=== PATIENT | male | born 1965 | race Caucasian/White ===

== ENCOUNTER 2017-02-16 07:21 | Day surgery (SDC) | payer OTHER ==
[~2017-02-16 07:21] MED LIST: Lactated Ringers 1,000 ML IV SCH; Lidocaine 1%/Sod Bicarbonate in NS 8.4% 1 ML Syringe PRN; Propofol 200 MG/20 ML SDV ONE; Sodium Chloride 0.9% 10 ML Syringe FLUSH PRN
--- NOTE | 2017-02-16 07:44 | PCM.PREANE ---
Preanesthetic Assessment - Anesthesia/Transfusion/Family Hx Anesthesia History: Prior Anesthesia Without Reaction Other Type of Anesthesia Reaction Comment: none Family History of Anesthesia Reaction: No Family History of Anesthesia Reaction, Other: none Transfusion History: No Prior Transfusion(s) Other Type of Transfusion Reaction: none - Review of Systems General: No Symptoms Pulmonary: No Symptoms Cardiovascular: No Symptoms Gastrointestinal: No symptoms Neurological: No Symptoms Other: Reports: None - Physical Assessment Pulse: 87 O2 Sat by Pulse Oximetry: 97 Respiratory Rate: 16 Blood Pressure: 145/96 Temperature: 98.2 C ASA Class: 2 Mental Status: Alert & Oriented x3 Airway Class: Mallampati = 2 Dentition: Reports: Normal Dentition ROM/Head Extension: Full Lungs: Clear to auscultation, Normal respiratory effort Cardiovascular: Regular Rate, Regular Rhythm - Allergies Allergies/Adverse Reactions: Allergies Allergy/AdvReac Type Severity Reaction Status Date / Time No Known Allergies Allergy Verified 02/15/17 15:42 - Anesthesia Plan Pre-Op Medication Ordered: None - Acknowledgements Anesthesia Type Planned: MAC Pt an Appropriate Candidate for the Planned Anesthesia: Yes Alternatives and Risks of Anesthesia Discussed w Pt/Guardian: Yes Pt/Guardian Understands and Agrees with Anesthesia Plan: Yes PreAnesthesia Questionnaire HEENT History: Reports: Allergic Rhinitis, Impaired Vision, Other (See Below) Other HEENT History: wears glasses Cardiovascular History: Reports: High Cholesterol, Hypertension, Other (See Below) (pt states has had a hx of irregular heartbeat, echo in 2010, 2012 normal , stress test at that time also negative) Other Cardiovascular History: irregular heart beat Respiratory History: Reports: None Gastrointestinal History: Reports: Hemorrhoids Genitourinary History: Reports: Other (See Below) Other Genitourinary History: hematuria DIGESTER 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: Reports: None Musculoskeletal History: Reports: Back Pain, Chronic Neurological History: Reports: None Psychiatric History: Reports: None Endocrine/Metabolic History: Reports: None Hematologic History: Reports: Anemia, Other (See Below) Other Hematologic History: metabolic syndrome X Immunologic History: Reports: None Oncologic (Cancer) History: Reports: None Dermatologic History: Reports: Other (See Below) Other Dermatologic History: skin neoplasm - Past Surgical History Head Surgeries/Procedures: Reports: None HEENT Surgical History: Reports: None Cardiovascular Surgical History: Reports: None Respiratory Surgical History: Reports: None GI Surgical History: Reports: Colonoscopy (no anesthetic complications with any procedures), Other (See Below) Other GI Surgeries/Procedures: pyloric stenosis surgery as infant Female Surgical History: Reports: None Male Surgical History: Reports: None Endocrine Surgical History: Reports: None Neurological Surgical History: Reports: None Musculoskeletal Surgical History: Reports: Other (See Below) (elbow x3) Other Musculoskeletal Surgeries/Procedures:: elbow surgery, foot surgery Oncologic Surgical History: Reports: None Dermatological Surgical History: Reports: None - SUBSTANCE USE Smoking Status *Q: Never Smoker Days Per Week of Alcohol Use: 4 Number of Drinks Per Day: 3 Total Drinks Per Week: 12 Recreational Drug Use History: No - HOME MEDS Home Medications: Home Meds Aspirin 81 mg PO DAILY 02/15/17 [History] Lisinopril 20 mg PO DAILY 02/15/17 [History] atorvaSTATin Calcium [Atorvastatin Calcium] 40 mg PO DAILY 02/15/17 [History] - CURRENT (IN HOUSE) MEDS Current Meds: Current Medications Lactated Ringer's (Ringers, Lactated) 1,000 mls @ 125 mls/hr IV ASDIRECTED EH Stop: 02/16/17 23:00 Lidocaine/Sodium Bicarbonate (Buffered Lidocaine 1% In Ns 8.4%) 0.25 ml .XX ONETIME PRN PRN Reason: Prior to IV Start Stop: 02/16/17 18:00 Sodium Chloride (Saline Flush) 10 ml FLUSH ASDIRECTED PRN PRN Reason: Keep Vein Open Stop: 02/16/17 18:00 Discontinued Medications Propofol (Diprivan 20 Ml) Confirm Administered Dose 200 mg .ROUTE .STK-MED ONE Stop: 02/16/17 07:00
[2017-02-16] MEDS ORDERED: Propofol 200 MG/20 ML SDV ONE (08:48)
--- NOTE | 2017-02-16 08:59 | PCM.OPNOTE ---
[id number] Findings: anal tag Pre Op Diagnosis: screening Post-Op Diagnosis: 1. anal tag Anesthesia Technique: MAC, Moderate sedation Primary Surgeon: Ray Sheikh Pathology: none EBL in mLs: 0 Complications: None Condition: Good Free Text/Narrative:: After adequate IV sedation and analgesia was obtained the patient was placed on his left side. Perianal inspection and digital rectal examination were remarkable for a anal tag. Prostate was grossly normal A lubricated colonoscope was inserted into the rectum then advanced under direct vision to the cecum without difficulty. The bowel preparation was excellent. The cecum, right colon , transverse, and descending colons were endoscopically normal with no inflammatory changes or mass lesions seen. The sigmoid and rectum were unremarkable as well. Photographs were taken for the patient and for the record. Air was removed, as I finished the procedure, which he tolerated well. There were no procedure complications.
--- NOTE | 2017-02-16 09:00 | PCM48HPAN ---
Post Anesthesia Note - EVALUATION WITHIN 48HRS OF ANESTHETIC Vital Signs in Normal Range: Yes Patient Participated in Evaluation: Yes Respiratory Function Stable: Yes Airway Patent: Yes Cardiovascular Function Stable: Yes Hydration Status Stable: Yes Pain Control Satisfactory: Yes Nausea and Vomiting Control Satisfactory: Yes Mental Status Recovered: Yes
[2017-02-16 09:19] VITALS: BP 94/70
== END 2017-02-16 09:29 | disposition home or self-care (01) ==
LOC: JD.SDS 07:21
PROVIDERS: ATTEND Surgery
DX: Z12.11 Encounter for screening for malignant neoplasm of colon (principal); K64.4 Residual hemorrhoidal skin tags; I10 Essential (primary) hypertension; Z79.82 Long term (current) use of aspirin; Z79.899 Other long term (current) drug therapy; Z98.890 Other specified postprocedural states; Z87.09 Personal history of other diseases of the respiratory system; Z78.9 Other specified health status; Z72.0 Tobacco use
CPT/HCPCS: 45378; J7120; J2704

== ENCOUNTER 2019-01-15 15:21 | Emergency (ER) | payer OTHER ==
[2019-01-15 15:33] VITALS: BP 118/69
[2019-01-15] MEDS ORDERED: Cephalexin 500 MG Cap PO ONE (16:30)
[2019-01-15] MEDS ORDERED: cefTRIAXone 1 GM, Lidocaine 1% 2.1 ML IM ONE ×2 (16:30)
--- NOTE | 2019-01-15 16:30 | EDM.PDOC ---
ED HPI GENERAL MEDICAL PROBLEM - General Chief Complaint: Skin Complaint Stated Complaint: OPEN WOUND Time Seen by Provider: 01/15/19 15:55 Source of Information: Reports: Patient History Limitations: Reports: No Limitations - History of Present Illness INITIAL COMMENTS - FREE TEXT/NARRATIVE: Patient is a 53-year-old male presents to the ED complaining of red, swollen, hot left elbow with increased pain with palpation that started approximately Tuesday morning. States this has not changed since onset. No redness streaking up his arm, fever, chills, nausea/vomiting, chest pain, or shortness of breath. He has no history of blood clots. Patient did have 2 IVs to this arm. One was present for 4 days. He has no history of MRSA. Second complaint is dehiscence of surgical incision to the abdomen. 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 This occurred 10 days ago. He was discharged this past and has been tolerating normal diet and having normal bowel movements. Pain has been tolerable unchanged. States today with having the sonia removed at his PCPs office they removed 3 sonia and the wound dehisced. There was some bleeding present. This has subsided. Patient was referred to the ED for further evaluation. Left Arm Pain Score (Numeric/FACES): 6 - Related Data Allergies Allergy/AdvReac Type Severity Reaction Status Date / Time No Known Allergies Allergy Verified 01/15/19 15:33 Home Meds: Home Meds Aspirin 81 mg PO DAILY 02/15/17 [History] Lisinopril 20 mg PO DAILY 02/15/17 [History] atorvaSTATin Calcium [Atorvastatin Calcium] 40 mg PO DAILY 02/15/17 [History] Doxycycline [Vibramycin] 100 mg PO BID #20 cap 01/15/19 [Rx] Past Medical History HEENT History: Reports: Allergic Rhinitis, Impaired Vision, Other (See Below) Other HEENT History: wears glasses Cardiovascular History: Reports: High Cholesterol, Hypertension, Other (See Below) Other Cardiovascular History: irregular heart beat Respiratory History: Reports: None Gastrointestinal History: Reports: Hemorrhoids Genitourinary History: Reports: Other (See Below) Other Genitourinary History: hematuria WEIGHER AND 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 History: Reports: None Musculoskeletal History: Reports: Back Pain, Chronic Neurological History: Reports: None Psychiatric History: Reports: None Endocrine/Metabolic History: Reports: None Hematologic History: Reports: Anemia, Other (See Below) Other Hematologic History: metabolic syndrome X Immunologic History: Reports: None Oncologic (Cancer) History: Reports: None Dermatologic History: Reports: Other (See Below) Other Dermatologic History: skin neoplasm - Past Surgical History Head Surgeries/Procedures: Reports: None HEENT Surgical History: Reports: None Cardiovascular Surgical History: Reports: None Respiratory Surgical History: Reports: None GI Surgical History: Reports: Colonoscopy, Other (See Below) Other GI Surgeries/Procedures: pyloric stenosis surgery as infant Male Surgical History: Reports: None Endocrine Surgical History: Reports: None Neurological Surgical History: Reports: None Musculoskeletal Surgical History: Reports: Other (See Below) Other Musculoskeletal Surgeries/Procedures:: elbow surgery, foot surgery Oncologic Surgical History: Reports: None Dermatological Surgical History: Reports: None Social & Family History - Tobacco Use Smoking Status *Q: Never Smoker - Caffeine Use Caffeine Use: - Recreational Drug Use Recreational Drug Use: No ED ROS GENERAL - Review of Systems Review Of Systems: ROS reveals no pertinent complaints other than HPI. ED EXAM, SKIN/RASH Exam: See Below Exam Limited By: No Limitations General Appearance: Alert, WD/WN, No Apparent Distress Ears: Hearing Grossly Normal Nose: Normal Inspection Throat/Mouth: Normal Voice, No Airway Compromise Head: Atraumatic, Normocephalic Neck: Normal Inspection, Supple Respiratory/Chest: No Respiratory Distress, Lungs Clear, Normal Breath Sounds, No Accessory Muscle Use, Chest Non-Tender Cardiovascular: Normal Peripheral Pulses, Regular Rate, Rhythm, No Murmur Peripheral Pulses: 2+: Radial (L), Radial (R) GI/Abdominal: Normal Bowel Sounds, No Organomegaly, No Distention, Tender, Other (Large midline vertical surgical incision from bowel resection with sonia present. The superior border of the incision site has dehisced measuring approximately 1.5 cm long by 0.25 cm wide. No active bleeding present. No findings concerning for infection including: Swelling, purulent drainage, or increased redness. Pain present with palpation. With further examination deeper it appears the fascia is intact. No colon protruding through incision.) Back Exam: Normal Inspection. No: CVA Tenderness (L), CVA Tenderness (R) Extremities: Other (On examination of the left elbow there is some swelling, faint redness, and pinpoint tenderness on the olecranon. Patient is able to move his arm at the elbow with no difficulties. There is decreased range of motion secondary to pain. Limited change.) Neurological: Alert, Oriented, CN II-XII Intact, Normal Cognition, No Motor/ Sensory Deficits Psychiatric: Normal Affect, Normal Mood Skin: Warm, Dry Course - Vital Signs Last Recorded V/S: Last Vital Signs Temp 97.8 F 01/15/19 15:29 Pulse 79 01/15/19 15:29 Resp 16 01/15/19 15:29 BP 118/69 01/15/19 15:29 Pulse Ox 99 01/15/19 15:29 - Orders/Labs/Meds Meds: Medications Discontinued Medications Generic Name Dose Route Start Last Admin Trade Name Freq PRN Reason Stop Dose Admin Cephalexin 500 mg 01/15/19 16:30 Keflex PO 01/15/19 16:31 ONETIME ONE Ceftriaxone Sodium 1 gm/ 0 gm 01/15/19 16:30 Lidocaine HCl 2.1 ml IM 01/15/19 16:31 ONETIME ONE Doxycycline Hyclate 200 mg 01/15/19 16:33 Vibramycin PO 01/15/19 16:34 ONETIME ONE - Re-Assessments/Exams Free Text/Narrative Re-Assessment/Exam: Patient appears to have a septic bursitis. Minimal redness present. Increased warmth noted. Some discomfort with direct palpation of the bursa sac. There is no redness streaking up his arm. Only faint swelling present. He is able to move his arm at the elbow with some limited range of motion secondary to pain. He has no fever. No findings on examination of the arm suggesting blood clot with no palpable cord noted. I will give patient a shot of rocephin and discharge patient on doxycycline 200mg PO. Dehiscence of surgical incision. On exam there is approximate 1.5 center by 0.5 cm opening to the superior border of the incision site. No bleeding present. It appears the fascia is intact. No findings suggestive force infection including: Redness, swelling, or purulent drainage. Minimal pain with palpation along this is surgical incision. [address] 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 Suggest dry dressing only. No wet to dry. Follow-up with surgeon who performed the surgery in [place] this week. Departure - Departure Time of Disposition: 16:34 Disposition: Home, Self-Care 01 Condition: Good Clinical Impression: Septic bursitis of elbow Qualifiers: Laterality: left Qualified Code(s): M71.122 - Other infective bursitis, left elbow Dehiscence of surgical wound Qualifiers: Encounter type: initial encounter Qualified Code(s): T81.31XA - Disruption of external operation (surgical) wound, not elsewhere classified, initial encounter - Discharge Information Prescriptions: Doxycycline [Vibramycin] 100 mg PO BID #20 cap Instructions: Cellulitis, Adult, Wound Dehiscence, [id number], Elbow Bursitis Referrals: Monik Turpin, AUTOMOTIVE UPHOLSTERER [Primary Care Provider] - Forms: ED Department Discharge Additional Instructions: Cleanse wound twice daily with soap and water, pat dry, reapply dry dressing. Do not pack wound. In addition for the septic bursitis of the left elbow will have you take doxycycline 100 mg one tablet twice a day for the next 10 days. Please refrain from any activities that cause increased stress on the wound site. Please follow up with general surgeon that performed the surgery in [place] this week for reevaluation. Return back to the ED if you develop any new or worsening symptoms.
[2019-01-15] MEDS ORDERED: Doxycycline 100 MG Cap PO ONE (16:33)
== END 2019-01-15 17:15 | disposition home or self-care (01) ==
LOC: JD.ED 15:21
DX: T81.31XA Disruption of external operation (surgical) wound, not elsewhere classified, initial encounter (principal); M71.122 Other infective bursitis, left elbow; Z79.82 Long term (current) use of aspirin; Z79.899 Other long term (current) drug therapy
CPT/HCPCS: 96372; 99282; A9270; J0696; J2001; 99283